=== PATIENT | male | born 1940 | race Caucasian/White ===

== ENCOUNTER → 2018-08-07 | Outpatient (CLI) | payer OTHER | LOC: CIMAGING 16:44 | PROVIDERS: ATTEND Internal Medicine | DX: S69.91XA Unspecified injury of right wrist, hand and finger(s), initial encounter (principal) | CPT/HCPCS: 73130-PO ==

== ENCOUNTER → 2019-03-14 | Outpatient (CLI) | payer OTHER | LOC: CIMAGING 08:03 ==